=== PATIENT | male | born 1955 | race Caucasian/White ===

== ENCOUNTER 2017-06-03 21:31 | Emergency (ER) | payer OTHER ==
[2017-06-03 21:38] VITALS: BP 133/90
--- NOTE | 2017-06-11 17:14 | UC ---
Carol Wilks Thomas, scribed for Roxanne Arevalo DO on 06/03/17 at 2151 . General HPI - HPI Summary HPI Summary: The pt is a 61 y/o M [place] [facility] [place] he a piece of meat has become lodged in his throat today at 20:00. He has vomited multiples times, usually phlegm but sometimes food. He says that he is unable to swallow phlegm or water. He has been coughing but he has not been choking. He describes tightness in his throat. He is hiccupping in the examination room. He has a history of foreign bodies that have become lodged in his throat. Pt denies F/S/C, SOB, CP, dizziness, and abd pain. The patient is accompanied by his son. 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 Negative: Abdominal Pain, Chest Pain, Dizziness, Fever, SOB - Allergy/Home Medications Allergies/Adverse Reactions: Allergies Allergy/AdvReac Type Severity Reaction Status Date / Time Codeine Allergy Vomiting Verified 06/03/17 21:38 Home Medications: Home Medications Atorvastatin* [Lipitor 10 MG*] 06/03/17 [History] Levothyroxine TAB* [Synthroid 88 MCG TAB*] 06/03/17 [History Confirmed 06/03/17 ] Valsartan TAB* [Diovan TAB*] 06/03/17 [History] metFORMIN* [Glucophage 500 MG TAB *] 06/03/17 [History] PMH/Surg Hx/FS Hx/Imm Hx Previously Healthy: No Endocrine History: Diabetes Cardiovascular History: Hypertension, Other Other Cardiovascular History: HLD - Surgical History Surgical History: None - Family History Known Family History: Positive: Cardiac Disease, Hypertension, Diabetes - Social History Alcohol Use: None Substance Use Type: None Smoking Status (MU): Never Smoked Tobacco Review of Systems ENT: Other - Foreign body in throat, throat tightness Gastrointestinal: Vomiting All Other Systems Reviewed And Are Negative: Yes Physical Exam Triage Information Reviewed: Yes Appearance: Well-Appearing, No Pain Distress, Well-Nourished Vital Signs: Initial Vital Signs Temp 97.9 F 06/03/17 21:35 Pulse 91 06/03/17 21:35 Resp 18 06/03/17 21:35 BP 133/90 06/03/17 21:35 Pulse Ox 99 06/03/17 21:35 Vital Signs Reviewed: Yes Eyes: Positive: Conjunctiva Clear. Negative: Discharge ENT: Positive: Hearing grossly normal. Negative: Muffled/hoarse voice Neck exam: Normal Neck: Positive: Supple Respiratory: Positive: Lungs clear, Normal breath sounds, No respiratory distress, No accessory muscle use Cardiovascular: Positive: RRR, No Murmur Musculoskeletal Exam: Normal Neurological: Positive: Alert, Muscle Tone Normal Psychological Exam: Normal Psychological: Positive: Age Appropriate Behavior Skin Exam: Normal Skin: Positive: Other - Warm, dry, normal color Course/Dx - Course Course Of Treatment: The pt is a 61 y/o M presenting with a piece of meat has become lodged in his throat today at 20:00. He is hiccuping and has vomiting. [facility] was called and the patient was transferred [place] [facility] - Differential Dx - Multi-Symptom Provider Diagnoses: fb in throat Discharge - Discharge Plan Condition: Stable Disposition: OTHER Discharge Disposition Comment: Brought to [facility] ED by [facility]. Referrals: No Primary Care Phys,NOPCP [Primary Care Provider] - The documentation as recorded by the Carol boykin Thomas accurately reflects the service I personally performed and the decisions made by , Roxanne Arevalo DO.
== END 2017-06-03 21:50 ==
LOC: UCEAST 21:31
DX: T17.228A Food in pharynx causing other injury, initial encounter (principal); X58.XXXA Exposure to other specified factors, initial encounter; Y93.9 Activity, unspecified; Y92.9 Unspecified place or not applicable; R05 Cough; R11.10 Vomiting, unspecified; R13.10 Dysphagia, unspecified; E11.9 Type 2 diabetes mellitus without complications; Z79.84 Long term (current) use of oral hypoglycemic drugs; I10 Essential (primary) hypertension; E78.5 Hyperlipidemia, unspecified; Z88.5 Allergy status to narcotic agent
CPT/HCPCS: 99203; G0463

== ENCOUNTER 2017-06-03 22:15 | Emergency (ER) | payer OTHER ==
[2017-06-03] MEDS ORDERED: Ondansetron INJ* 2 MG/ML VIAL IV ONE (22:23)
[2017-06-03] MEDS ORDERED: NS 0.9% 1000 ML* 1,000 ML IV ONE (22:23)
[2017-06-03 22:43] LABS: Hematocrit 43 % (42-52); Hemoglobin 14.1 g/dl (14.0-18.0); Mean Corpuscular HGB Conc 33 g/dl (31-36); Mean Corpuscular Hemoglobin 28 pg (27-31); Mean Corpuscular Volume 84 fL (80-94); Mean Platelet Volume 8 um3 (7.4-10.4); Red Blood Count 5.08 10^6/ul (4.0-5.4); Red Cell Distribution Width 14 % (10.5-15); White Blood Count 11.7 10^3/ul (3.5-10.8)
[2017-06-03 22:57] LABS: BUN/Creatinine Ratio 19.8 (8-20); C Reactive Protein 8.54 mg/L (< 5.00); Calcium 10.5 mg/dL (8.6-10.3); EGFR African American 90.7 (>60); EGFR Non-African American 70.6 (>60); Globulin 3.5 g/dL (2-4); Potassium 3.4 mmol/L (3.5-5.0); Total Bilirubin 0.6 mg/dL (0.2-1.0); Total Protein 8.5 g/dL (6.4-8.9)
[2017-06-03] MEDS ORDERED: Midazolam* 1 MG/ML 10 ML VIAL (10 MG) ONE (23:00)
[2017-06-03] MEDS ORDERED: diPHENhydraMINE IV* 50 MG/ML 1 ml VIAL (BENADRYL) ONE (23:00)
[2017-06-03] MEDS ORDERED: fentaNYL* 50 MCG/ML 2 ML VIAL (100 MCG VIAL) ONE (23:00)
[2017-06-04 02:53] VITALS: BP 102/75
--- NOTE | 2017-06-04 03:48 | CONS ---
GASTROENTEROLOGY CONSULTATION: DATE OF CONSULT: 06/03/17 ATTENDING PHYSICIAN: Dr. Ambriz. REASON FOR CONSULTATION: Food impaction. HISTORY OF PRESENT ILLNESS: Mr. Hurtado is a very pleasant 61-year-old gentleman with history of depression, hypertension, diabetes and hypothyroidism who initially presented to an urgent care center with complaints of a piece of meat "stuck in his throat." Since 19:00 this evening, he was at a restaurant with his son eating Mediterranean food and ate a piece of beef and shortly thereafter he began to experience some chest discomfort. He vomited multiple times prior to arrival to the urgent care center. Denies hematemesis and he is unable to tolerate his oral secretions and has been unable to stop hiccupping. He was subsequently sent to [facility] Emergency Room for an endoscopy for disimpaction/foreign body removal. He states he has had similar episodes with this over the past 3 years; however, he has been able to cough up pieces of meat and his symptoms resolve immediately. Admits to some heartburn symptoms that are well controlled with Zantac at night. He denies prior endoscopy. Denies any shortness of breath, chest pain, abdominal pain, lightheadedness or dizziness. No recent weight changes. Denies a history of tobacco use as well as alcohol use. No family history of gastrointestinal malignancies or motility disorders. PAST MEDICAL HISTORY: 1. Hypertension. 2. Diabetes. 3. Hypothyroidism. 4. Dyslipidemia. 5. Depression. PAST SURGICAL HISTORY: Colonoscopy greater than 10 years ago. FAMILY HISTORY: Significant for hypertension, diabetes and cardiac disease. Denies motility disorders or GI malignancies. SOCIAL HISTORY: He denies tobacco, alcohol or any recreational drug use. He is currently visiting his son from [place]. REVIEW OF SYSTEMS: On a 14-point scale had been reviewed. All pertinent positives and negatives have been noted above in the HPI. PHYSICAL EXAM: Vital Signs: Temperature 97.9, pulse 91, respirations 18, blood pressure 133/90, O2 saturation on room air 99%. Generally, the patient is alert and oriented x3, well nourished. Normocephalic, atraumatic. He continues to spit up saliva and is distressed from experiencing frequent hiccups while in bed. HEENT: Normocephalic, atraumatic. Moist mucous membranes. Neck is supple. Cardiovascular Exam: Slightly tachycardic, regular rhythm. Pulmonary: Clear to auscultation bilaterally. Abdominal Exam : Obese, soft, nontender, nondistended. No rebound, guarding, or rigidity. Bowel sounds are present in 4 quadrants. Extremities: No clubbing, cyanosis, or edema. Neurological Exam: Cranial nerves are grossly intact. DIAGNOSTIC STUDIES/LAB DATA: None. ASSESSMENT AND PLAN: Mr. Hurtado is a 61-year-old gentleman who is presenting with food impaction shortly after eating dinner at 19:00 this evening. He has had prior episodes over the last 3 years but have required an endoscopy as his symptoms were not as severe. He was transferred from an urgent care center to our emergency room for an emergent endoscopy for food disimpaction/foreign body removal. Food impaction may from an esophageal stricture vs. shatzki's ring vs. esophgeal tumor vs. eosinophilic esophagitis vs. motility disorder. 1. The patient is to remain strict n.p.o. 2. We will perform an emergent endoscopy at bedside in the emergency room with moderate sedation. 3. Risks and benefits have been discussed with the patient and patient's son at bedside. They demonstrated understanding of the conversation. They are agreeable to proceed forward with the procedure. Consent has been signed. 3. Continue IV fluids. 4. Further recommendations will be provided after endoscopy results. Thank you, Dr. Ambriz, for allowing us to participate in the care of your patient. If you should have any further questions or concerns, please do not hesitate to contact us. [id number]/[facility] #: [id number] LD
--- NOTE | 2017-06-04 18:07 | PRO ---
GASTROENTEROLOGY PROCEDURE REPORT: DATE OF PROCEDURE: 06/04/17 PROCEDURE: Esophagogastroduodenoscopy to second portion of duodenum with food disimpaction. SURGEON: Nicole Chaidez DO ANESTHESIA: 1. Benadryl 25 mg IV. 2. Midazolam 3 mg IV. 3. Fentanyl 100 mcg IV. PREPROCEDURE DIAGNOSIS: Food impaction. HISTORY OF PRESENT ILLNESS: Mr. Hurtado is a very pleasant 61-year-old gentleman with a history of depression, hypertension, dyslipidemia, who presented to the emergency room with food impaction and is in need of an emergent EGD. POSTPROCEDURE DIAGNOSES: 1. Food impaction in the mid esophagus removed via De La O net. 2. Mild pangastritis. 3. Mild narrowing in the distal esophagus. 4. Duodenitis of the bulb in the second portion of the duodenum. 5. Biopsies and dilation were not performed as it was an emergent endoscopy and patient was high risk for aspiration. RECOMMENDATIONS: 1. Start pantoprazole therapy 40 mg daily. 2. Advance diet to regular as tolerated. 3. The patient is to follow up with his primary care physician next week in order to be set up with a flatbed stitcher for a followup endoscopy as soon as possible so that biopsies may be obtained. May need an esophageal manometry in the future if repeat EGD and biopsies are negative. Results and recommendations were discussed with patient's son at bedside. DESCRIPTION OF PROCEDURE: Esophagogastroduodenoscopy was explained in detail to the patient. The risks, benefits, complications, alternatives, and possibilities of missed lesions were explained and understood. Complications included, but were not limited to, reaction to anesthesia, aspiration, increased risk of bleeding and perforation. All questions were answered. The patient and his son demonstrated understanding of the conversation. Informed consent was obtained. Next, the patient remained in the emergency room where blood pressure, cardiac, and oxygen monitors were applied. The patient was found to be a fit candidate for moderate anesthesia. After adequate IV sedation was obtained, a bite-block was placed. Next, a standard adult Olympus endoscope was inserted per os under direct visualization. Upon entry into the mid esophagus, there was a large food bolus that was seen. Attempts were made to traverse the food bolus into the body of the stomach; however, there was significant resistance suggestive of a possible stricture. Therefore, a De La O net was used in order to remove the large food bolus. After multiple attempts of removing majority of the food bolus via De La O net, the endoscope was used to maneuver the remaining food bolus into the stomach. This was performed successfully. There was mild narrowing noted at the distal esophageal junction noted to be at 38 cm from the incisors. There was no bleeding or esophageal tearing that was visualized during the procedure. Further maneuvering of the endoscope into the duodenum revealed erythematous changes consistent of duodenitis of the bulb and the second portion of the duodenum. Withdrawal of the endoscope into the gastric lumen revealed mild erythematous changes throughout the entire stomach suggestive of pangastritis. On retroflexion, the patient had a normal cardiac sling. Further withdrawal into the esophagus again revealed mild narrowing at the distal esophageal junction. Again, biopsies and dilation were not performed due to emergent nature of procedure and high risk of aspiration. Air was then removed from the patient. Endoscope was removed from the patient. The patient tolerated the procedure well. There were no immediate complications. After a period of observation, the patient was discharged home in stable condition with his son. [id number]/[facility] #: [id number] LD
== END 2017-06-04 02:11 | disposition home or self-care (01) ==
LOC: ED 22:15
DX: T18.128A Food in esophagus causing other injury, initial encounter (principal); X58.XXXA Exposure to other specified factors, initial encounter; Y93.9 Activity, unspecified; Y92.9 Unspecified place or not applicable
CPT/HCPCS: 36415; 80053; 83605; 83690; 85025; 86140; 96374; 99156; 99157; 99283; J1200; J2250; J2405; J3010